=== PATIENT | male | born 1935 | race Caucasian/White ===

== ENCOUNTER → 2024-03-20 16:15 | Outpatient (REF) | payer MEDICARE, SELFPAY | LOC: RAD 16:15 | PROVIDERS: ATTENDING PHYSICIAN Internal Medicine; FAMILY PHYSICIAN Family Medicine | DX: R91.1 Solitary pulmonary nodule (principal) | CPT/HCPCS: 71250 ==

== ENCOUNTER → 2024-03-31 08:42 | Outpatient (REF) | payer MEDICARE, SELFPAY ==
[2024-03-31 09:51] LABS: % Basophils 0.7 % (0-2); % Eosinophils 5.1 % (0-6); % Immature Granulocytes 0.2 % (0-0.5); Absolute Eosinophils 0.3 10^3/uL (0-0.7); Absolute Lymphocytes 0.7 10^3/uL (1.2-3.4); Absolute Monocytes 0.6 10^3/uL (0.1-0.6); Absolute Neutrophils 4.4 10^3/uL (1.4-6.5); Hematocrit 47.9 % (39.0-52.0); Hemoglobin 15.8 g/dL (13.0-18.0); Mean Corpuscular Hgb 31.2 pg (27.0-31.0); Mean Corpuscular Volume 94.5 fL (80.0-94.0); Mean Platelet Volume 10.9 fL (7.4-10.4); Nucleated Red Blood Cells % 0 % (-); Platelet Count 284 10^3/uL (130-400); Red Blood Cell Count 5.07 10^6/uL (4.70-6.10); Red Cell Dist. Width 14.6 % (11.5-14.5); White Blood Cell Count 6.1 10^3/uL (4.8-10.8)
[2024-03-31 10:09] LABS: ALT (SGPT) 20 U/L (0-50); AST (SGOT) 26 U/L (17-59); Albumin 3.9 g/dl (3.5-5.0); Alkaline Phosphatase 63 U/L (38-126); Direct Bilirubin 0.3 mg/dl (0.0-0.4); Total Bilirubin 0.6 mg/dl (0.2-1.3); Total Protein 6.5 g/dl (6.3-8.2)
[2024-03-31 10:41] LABS: Hepatitis B Surface Antigen Negative (Negative)
[2024-03-31 10:45] LABS: Hepatitis B Core Ab, IgM Negative (Negative)
[2024-03-31 10:59] LABS: Hepatitis B Surface Antibody Negative; Hepatitis C Antibody Negative (Negative)
[2024-04-03 09:57] LABS: Quantiferon Mitogen minus NIL 1.54 IU/mL; Quantiferon NIL 0.02 IU/mL; Quantiferon TB Gold Plus Negative (Negative)
== END ==
LOC: REG 08:42
PROVIDERS: ATTENDING PHYSICIAN Dermatology; FAMILY PHYSICIAN Family Medicine
DX: L40.0 Psoriasis vulgaris (principal)
CPT/HCPCS: 36415; 80076; 85025; 86480; 86705; 86706; 86803; 87340

== ENCOUNTER → 2024-08-18 08:58 | Outpatient (REF) | payer MEDICARE, SELFPAY ==
[2024-08-18 10:34] LABS: Urine Albumin Negative (Neg - Trace); Urine Bilirubin Negative (Negative); Urine Character Clear (Clear); Urine Color Yellow; Urine Glucose Negative (Negative); Urine Ketone Negative (Negative); Urine Leukocyte Negative (Negative); Urine Nitrite Negative (Negative); Urine Occult Blood Negative (Negative); Urine Urobilinogen Negative (Neg - 1+)
[2024-08-18 10:38] LABS: % Eosinophils 10.1 % (0-6); % Immature Granulocytes 0.3 % (0-0.5); % Lymphocytes 11.2 % (20.5-51.1); % Monocytes 9.7 % (1.7-9.3); % Neutrophils 67.7 % (42.2-75.2); Absolute Basophils 0.1 10^3/uL (0-0.2); Absolute Eosinophils 0.6 10^3/uL (0-0.7); Absolute Lymphocytes 0.7 10^3/uL (1.2-3.4); Absolute Monocytes 0.6 10^3/uL (0.1-0.6); Absolute Neutrophils 4.1 10^3/uL (1.4-6.5); Hematocrit 48.1 % (39.0-52.0); Hemoglobin 15.8 g/dL (13.0-18.0); Mean Corp Hgb Conc. 32.8 g/dL (33.0-37.0); Mean Corpuscular Hgb 30.2 pg (27.0-31.0); Mean Corpuscular Volume 91.8 fL (80.0-94.0); Mean Platelet Volume 11.2 fL (7.4-10.4); Nucleated Red Blood Cells % 0 % (-); Platelet Count 255 10^3/uL (130-400); Red Blood Cell Count 5.24 10^6/uL (4.70-6.10); Red Cell Dist. Width 14.7 % (11.5-14.5); White Blood Cell Count 6.1 10^3/uL (4.8-10.8)
[2024-08-18 11:27] LABS: Erythrocyte Sed Rate 9 mm/hour (0-20)
[2024-08-18 11:55] LABS: ALT (SGPT) 22 U/L (0-50); AST (SGOT) 25 U/L (17-59); Alkaline Phosphatase 59 U/L (38-126); Blood Urea Nitrogen 25 mg/dl (9-20); Calcium 9.1 mg/dl (8.4-10.2); Carbon Dioxide 26 mmol/L (22-30); Chloride 106 mmol/L (98-107); Glucose 82 mg/dl (70-99); Potassium 5.3 mmol/L (3.5-5.1); Sodium 144 mmol/L (135-145); Total Bilirubin 0.9 mg/dl (0.2-1.3); Total Protein 6.5 g/dl (6.3-8.2); eGFR > 60.00
[2024-08-18 12:10] LABS: TSH Reflex To Free T4 2.46 uIU/ml (0.47-4.68)
== END ==
LOC: REG 08:58
PROVIDERS: ATTENDING PHYSICIAN Family Medicine
DX: R63.4 Abnormal weight loss (principal)
CPT/HCPCS: 36415; 80053; 81003; 84443; 85025; 85652; 86140; 86618

== ENCOUNTER → 2024-09-29 10:36 | Outpatient (REF) | payer MEDICARE, SELFPAY | LOC: RAD 10:36 | PROVIDERS: ATTENDING PHYSICIAN Internal Medicine; FAMILY PHYSICIAN Family Medicine | DX: J47.9 Bronchiectasis, uncomplicated (principal) | CPT/HCPCS: 71250 ==